=== PATIENT | female | born 1965 | race Caucasian/White ===

== ENCOUNTER 2021-07-19 10:30 | Inpatient (IN) | payer OTHER ==
[~2021-07-19 10:30] MED LIST: HEPARIN SODIUM,PORCINE 10,000 UNIT in SODIUM CHLORIDE 0.9% 1,000 ML IRRIGATION PRN; HEPARIN SODIUM,PORCINE 2,500 UNIT in SODIUM CHLORIDE 0.9% 250 ML IRRIGATION PRN
[2021-07-19] MEDS ORDERED: IV FLUID CONTINUATION 300 ML IV ONE (14:55)
[2021-07-19] MEDS ORDERED: fentaNYL (PF) 50 MCG/ML 2 ML AMP ONE (15:05)
[2021-07-19] MEDS ORDERED: ATORVASTATIN 80 MG TAB PO ONE (15:06)
[2021-07-19] MEDS ORDERED: LIDOCAINE 1% INJ 10MG/ML (20 ML MDV) ONE (15:06)
[2021-07-19] MEDS ORDERED: VERAPAMIL 2.5 MG/ML 2 ML AMP ONE (15:06)
[2021-07-19] MEDS ORDERED: ALPRAZolam 0.5 MG TAB PO PRN (15:07)
[2021-07-19] MEDS ORDERED: NITROGLYCERIN SL TABS 0.4 MG TAB SUBLINGUAL PRN ×2 (15:07→16:13)
--- NOTE | 2021-07-19 15:13 | P.CRDCN ---
History of Present Illness History of present illness: HISTORY OF PRESENTING ILLNESS This is a pleasant 56-year-old female past medical history significant for dyslipidemia on chronic nicotine dependence. Mother had cardiac disease and she is unsure what age. 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 She presented to [facility] at 1400 with symptoms of discomfort in the scapular region and the left anterior chest that radiates up into the left neck. EKG on arrival revealed sinus mechanism heart rate of [address] elevation noted in the inferior leads with T-wave inversions septally and in the high lateral leads. STEMI was activated and she was transferred here for cardiac catheterization. Chest x-ray performed at [facility] was negative for an acute cardiopulmonary process. Minimal labs available at the time of transfer, WBC 8, hemoglobin 14.8, platelets 290, creatinine 0.8. She was given 325 mg of aspirin and 4000 units of IV heparin along with Zofran. She is seen and examined quite anxious and tearful. She continues to have discomfort in the left side of her neck. She takes no daily cardiac medications. REVIEW OF SYSTEMS At the time of my exam: CONSTITUTIONAL: Denies fever or chills. CARDIOVASCULAR: Complains of neck and chest pain. Denies shortness of breath, orthopnea, PND or palpitations. RESPIRATORY: Denies cough. GASTROINTESTINAL: Denies abdominal pain, diarrhea, constipation, nausea or vomiting. MUSCULOSKELETAL: Denies myalgias. NEUROLOGIC: Denies numbness, tingling, headache or weakness. ENDOCRINE: Denies fatigue, weight change, polydipsia or polyurina. GENITOURINARY: Denies burning, hematuria or urgency with micturation. HEMATOLOGIC: Denies history of anemia or bleeding. PHYSICAL EXAMINATION CONSTITUTIONAL: No apparent distress. HEENT: Head is normocephalic. Pupils are equal, round. Sclerae anicteric. Mucous membranes of the mouth are moist. No JVD. No carotid bruit. CHEST EXAMINATION: Lungs are clear to auscultation. No chest wall tenderness is noted on palpation or with deep breathing. HEART EXAMINATION: Regular rate and rhythm. S1, S2 heard. No murmurs, gallops or rub. ABDOMEN: Soft, nontender. EXTREMITIES: 2+ peripheral pulses, no lower extremity edema and no calf tenderness. NEUROLOGIC EXAMINATION: Patient is awake, alert and oriented x3. ASSESSMENT Acute inferior wall myocardial infarction Dyslipidemia Chronic nicotine dependence PLAN Patient being transferred directly to the laborer yard for left heart cath. I have discussed the risks, benefits and alternative therapies for the above- mentioned procedure and for both sedation/analgesia as well as necessary blood product administration, if indicated, as they pertain to this patient. The patient has indicated understanding and acceptance of the risks and procedures discussed. Qu Patient received aspirin 324 mg, Zofran and heparin 4000 units IV prior to arrival. 80 mg of Lipitor is given in the laborer yard. Further recommendations to follow based upon clinical course. Nurse Practitioner note has been reviewed, I agree with a documented findings and plan of care. Patient was seen and examined.
[2021-07-19] MEDS ORDERED: fentaNYL (PF) 50 MCG/ML 2 ML AMP IV ONE (15:14)
[2021-07-19] MEDS ORDERED: LIDOCAINE 1% INJ 10MG/ML (20 ML MDV) SQ ONE (15:14)
[2021-07-19] MEDS ORDERED: HEPARIN SODIUM 1,000 UN/ML (10ML VL) ONE (15:18)
[2021-07-19] MEDS ORDERED: MIDAZOLAM 2 MG/2 ML VIAL IV ONE (15:18)
[2021-07-19] MEDS ORDERED: SODIUM CHLORIDE 0.9% 500 ML 500 ML IV ONE (15:20)
[2021-07-19] MEDS ORDERED: HEPARIN SODIUM 1,000 UN/ML (10ML VL) IV ONE (15:22)
[2021-07-19] MEDS ORDERED: TICAGRELOR 90 MG TAB ONE (15:22)
[2021-07-19] MEDS ORDERED: TICAGRELOR 90 MG TAB PO ONE (15:26)
[2021-07-19] MEDS ORDERED: SODIUM CHLORIDE 0.9% 1,000 ML IV ONE (15:36)
[2021-07-19] MEDS ORDERED: IOPAMIDOL-370 125ML BTL INJ ONE (15:39)
[2021-07-19] MEDS ORDERED: RX INFO: IV CONTRAST WAS GIVEN 1 EACH MISC MISCELLANE PRN (16:13)
[2021-07-19] MEDS ORDERED: MAG HYDROX/AL HYDROX/SIMETH 30 ML CUP PO PRN (16:13)
[2021-07-19] MEDS ORDERED: ZOLPIDEM 5 MG TAB PO PRN (16:13)
[2021-07-19] MEDS ORDERED: ATROPINE SULFATE 0.1 MG/ML 10ML SYRINGE IV PRN (16:13)
[2021-07-19] MEDS ORDERED: SODIUM CHLORIDE 0.9% 1,000 ML IV SCH (16:15)
[2021-07-19] MEDS ORDERED: IOPAMIDOL-370 100ML BTL INJ ONE (16:20)
--- NOTE | 2021-07-19 17:27 | CC ---
CARDIAC CATHETERIZATION REPORT DATE OF PROCEDURE: 07/19/2021 Mrs. Ludwig is a 56-year-old female with known history of chronic tobacco use who presented to [facility] with evidence of chest discomfort and evidence inferior myocardial infarction . She was transferred to [facility] to undergo cardiac catheterization. The procedure as well as its risks and complications were discussed with the patient, who was in full understanding and agreement. PROCEDURE DESCRIPTION: Patient was brought to laborer [place]. She received fentanyl and Benadryl and after achieving a moderate conscious sedated state she was prepped and draped in conventional fashion. Using Xylocaine anesthesia and Seldinger technique, a 6-Vincentian sheath was introduced in the right radial artery. Right coronary angiography was performed using 6-Vincentian FR4 guiding catheter. Subsequently and after obtaining images of the right coronary artery, angioplasty and stenting of the right coronary artery were performed. Following that, a 5-Vincentian 3.5 bend left Kailyn catheter was introduced into the system and images of the left coronary system were performed. The right Kailyn was used to cross the aortic valve and left ventricular end-diastolic pressure was calculated. At the end of the procedure, catheter and sheaths were removed. Hemostasis was obtained with deployment of a TR band. There was no immediate complication. The patient was returned to her room in stable condition. Of note, the patient received 3500 units of intravenous heparin as well as intra-arterial verapamil and an oral loading dose of Brilinta. Her ACT was followed. ANGIOGRAPHY: LEFT MAIN: This is a large-sized vessel bifurcating into left circumflex and left anterior descending coronary artery. Left main coronary artery has no evidence of high- grade stenosis. LEFT ANTERIOR DESCENDING ARTERY: This is a large-sized vessel reaching to the apex with a wrap around the apex segment giving rise to a small diagonal branch. The left anterior descending artery has no evidence of high-grade stenosis. LEFT CIRCUMFLEX: This is a nondominant, large-sized vessel giving rise to 2 obtuse marginal branches. The second obtuse marginal branch has 10% to 20% plaque. The rest of the vessel has no high-grade stenosis. RIGHT CORONARY ARTERY: This vessel is subtotally occluded in the mid segment with slow flow in the distal segment. There was diffuse disease from the proximal to the mid segment. COLLATERALS: There is collateral from the left system toward the RCA. HEMODYNAMICS: There is no gradient across the aortic valve. The left ventricular end- diastolic pressure was 16-20 mmHg. ANGIOPLASTY AND STENTING: Using the 6-Vincentian FR4 guiding catheter, a 0.014 balanced medium weight J-wire was advanced across the lesion, positioned distally, and then a 2.5 x 12 mm Trek balloon was advanced and two inflations at 8 atmospheres were done. Following that, the balloon was removed and a 2.5 x 18 mm Xience Johana stent was deployed, post-dilated at 16 atmospheres. Following that, the balloon was removed and a 2.5 x 12 mm Xience Johana stent was deployed distal to the first one and post-dilated at 16 atmospheres. Following that, the balloon was removed and a 2.75 x 33 mm Xience Johana stent was deployed proximally and post-dilated at 16 atmospheres. After the last inflation, the balloon was removed and a 3.0 x 15 mm NC Trek balloon was advanced and multiple inflations in the stented segment were done. After the last inflation, after appropriate wait, the balloon and the guidewire were withdrawn back into the guiding catheter. Images were obtained and repeated. Those images revealed stable successful stenting. Subsequently images of the left coronary system were performed. Following that, catheter and sheaths were removed and hemostasis was obtained with deployment of a TR band. RESULTS: 1. Successful stenting of the mid RCA with a long diffuse lesion with reduction of stenosis from 99% to 0%. 2. Mild disease in the obtuse marginal branch. RECOMMENDATIONS: In view of findings and anatomy, I have recommended continuing the aspirin and Brilinta without any interruption for 12 months. She will continue on aggressive coronary risk modifications in addition to beta galilea and JONNATHAN inhibitor, depending on her blood pressure. Those findings and recommendations were discussed with the patient and her family, who are in full understanding and agreement. The importance of smoking cessation was discussed with them. Duration of sedation was 46 minutes. MMODL / IJN: [id number] / TAMMI
--- NOTE | 2021-07-19 20:08 | LTR ---
July 19, 2021 To: Dr. Ramos Re: Lisa Ludwig (61) Dear Dr. Ramos, I had the pleasure of performing coronary angiography and coronary angioplasty and stenting on Mrs. Ludwig on July 19, and a full copy of the procedure note will be forwarded to you. In brief, she underwent successful stenting of her mid right coronary artery. I am hopeful that this procedure will stabilize her status. Thank you again for allowing me to participate in this patient's care. Please feel free to call with any questions. Sincerely, Delia Crockett M.D. BRITTNEE / DEREK: [id number] /
[2021-07-19] MEDS: SODIUM CHLORIDE 0.9% 1,000 ML in EMPTY BAG 1 BAG IV SCH (20:19)
[2021-07-19 21:14] LABS: Magnesium 2.1 mg/dL (1.6-2.3); Potassium 4.2 mmol/L (3.5-5.1)
[2021-07-19] MEDS: METOPROLOL TARTRATE 12.5 MG TAB PO SCH (21:26)
[2021-07-19] MEDS: ATORVASTATIN 80 MG TAB PO SCH (21:29)
[2021-07-19] MEDS: TICAGRELOR 90 MG TAB PO SCH (21:29)
[2021-07-19] MEDS: ALPRAZolam 0.25 MG TAB PO PRN (21:29)
[2021-07-20] MEDS: ALPRAZolam 0.25 MG TAB PO PRN ×2 (01:23→20:01)
[2021-07-20 05:34] LABS: African American GFR (CKD) >90 (>60 ml/min/1.73 sqM); Anion Gap 6 mmol/L; Blood Urea Nitrogen 10 mg/dL (7-17); Calcium 9.8 mg/dL (8.4-10.2); Carbon Dioxide 23 mmol/L (22-30); Chloride 110 mmol/L (98-107); Glucose 103 mg/dL (74-99); Non-African American GFR(CKD) >90 (>60 ml/min/1.73 sqM); Potassium 4.1 mmol/L (3.5-5.1); Sodium 139 mmol/L (137-145)
[2021-07-20] MEDS: SODIUM CHLORIDE 0.9% 1,000 ML in EMPTY BAG 1 BAG IV SCH (06:13)
[2021-07-20 09:12] LABS: Basophils % (A) 0 %; Eosinophils # (A) 0.1 k/uL (0-0.7); Eosinophils % (A) 1 %; HCT 44.2 % (34.0-46.0); Lymphocytes # (A) 1.4 k/uL (1.0-4.8); Lymphocytes % (A) 14 %; MCH 29.6 pg (25.0-35.0); MCHC 34.1 g/dL (31.0-37.0); MCV 86.9 fL (80.0-100.0); Mean Platelet Volume 7.2; Monocytes # (A) 0.5 k/uL (0-1.0); Monocytes % (A) 5 %; Neutrophils # (A) 7.8 k/uL (1.3-7.7); Neutrophils % (A) 79 %; Platelet Count 278 k/uL (150-450); RBC 5.08 m/uL (3.80-5.40); RDW 13.2 % (11.5-15.5)
[2021-07-20] MEDS: METOPROLOL TARTRATE 12.5 MG TAB PO SCH ×2 (09:18→20:03)
[2021-07-20] MEDS: LEVOTHYROXINE 112 MCG TAB PO SCH (09:23)
[2021-07-20] MEDS: ASPIRIN 81 MG PO SCH (09:23)
[2021-07-20] MEDS: TICAGRELOR 90 MG TAB PO SCH ×2 (09:23→19:52)
[2021-07-20] MEDS: SODIUM CHLORIDE 0.9% 1,000 ML IV SCH ×2 (09:23→22:06)
[2021-07-20] MEDS: LOSARTAN 25 MG TAB PO SCH (09:24)
[2021-07-20 10:05] LABS: Chol/HDL Ratio 5.12 Ratio; LDL Cholesterol,Calculated 145.9 mg/dL (0.0-131.0)
--- NOTE | 2021-07-20 11:08 | ECHOF ---
Referral Reason:mi MEASUREMENTS -------- HEIGHT: 157.5 cm WEIGHT: 76.7 kg BP: IVSd: 0.9 cm (0.6 - 1.1) LVIDd: 4.5 cm (3.9 - 5.3) LVPWd: 1.1 cm (0.6 - 1.1) IVSs: 1.7 cm LVIDs: 2.6 cm LVPWs: 1.8 cm LAESV Index (A-L): 29.13 ml/m Ao Diam: 2.9 cm (2.0 - 3.7) AV Cusp: 2.0 cm (1.5 - 2.6) LA Diam: 2.9 cm (2.7 - 3.8) MV EXCURSION: 19.740 mm (> 18.000) MV EF SLOPE: 103 mm/s (70 - 150) EPSS: 1.6 cm MV E David: 0.91 m/s MV DecT: 224 ms MV A David: 0.72 m/s MV E/A Ratio: 1.26 RAP: 5.00 mmHg RVSP: 29.59 mmHg FINDINGS -------- This was a technically good study. The left ventricular size is normal. Left ventricular wall thickness is normal. Overall left vent ricular systolic function is low-normal with, an EF between 50 - 55 %. The diastolic filling patter n is normal for the age of the patient 12.73. Basal inferior LV wall motion is hypokinetic. The right ventricle is normal in size. LA is midly dilated 29-33ml/m2. The right atrial size is normal. The aortic valve is trileaflet and appears structurally normal. The mitral valve is normal. Moderate mitral regurgitation is present. The tricuspid valve appears structurally normal. Mild tricuspid regurgitation present. Right vent ricular systolic pressure is normal at < 35 mmHg. There is no pulmonic regurgitation present. The aortic root size is normal. Normal inferior vena cava with normal inspiratory collapse consistent with estimated right atrial pre ssure of 5 mmHg. There is no pericardial effusion. CONCLUSIONS -------- 1. The left ventricular size is normal. 2. Left ventricular wall thickness is normal. 3. Overall left ventricular systolic function is low-normal with, an EF between 50 - 55 %. 4. The diastolic filling pattern is normal for the age of the patient 12.73 5. Basal inferior LV wall motion is hypokinetic. 6. Moderate mitral regurgitation is present. 7. Mild tricuspid regurgitation present. 8. There is no pericardial effusion. SUPER[employer]OR [employer]ING UP: Amena Montoya RDCS
[2021-07-20 13:11] VITALS: BMI 29.1
--- NOTE | 2021-07-20 13:17 | PN ---
PROGRESS NOTE HISTORY: This lady has been admitted to the hospital after transfer from [facility] with acute ST-elevation NH involving the inferior wall. She underwent stenting of RCA by Dr. Crockett. She is doing well. Echo today revealed ejection fraction of about 45-50 percent with the mid inferior and inferobasal hypokinesia. She is hemodynamically stable resting without any chest pain, shortness of breath or palpitation. PHYSICAL EXAM: Vitals are stable. No JVD or carotid bruit. S1-S2 heard normally. Lungs are clear. Abdomen is soft, nontender. Lower extremities reveal normal pulses. No edema. Central nervous system is normal. Right radial site is clean and dry with a good pulse. RECOMMENDATIONS: I am recommending that we will continue current medical regimen. Increase activity. Start her on a small dose of losartan. She is slightly bradycardic. We will hold Lopressor for heart rate of less than 60. We will increase activity. Check another CBC and troponin and move her to telemetry today. Gradual increase activity and hopefully discharge in the next 48 hours. I discussed my thoughts in detail with the patient and also spoke to her daughter, Rossi, by phone. MMODL / IJN: [id number] /
[2021-07-20] MEDS: ATORVASTATIN 80 MG TAB PO SCH (19:52)
[2021-07-21] MEDS: LEVOTHYROXINE 112 MCG TAB PO SCH (06:32)
--- NOTE | 2021-07-21 08:50 | P.HPIM ---
History of Present Illness Patient is pleasant 56-year-old female came in with complaints of chest pain and found to have ST elevation microinfarction patient underwent cardiac ablation and stenting to RCA patient has some sinus bradycardia patient is closely being monitored because of highly elevated troponin. Patient had a repeat echocardiogram which showed normal ejection fraction patient is presently on dual antiplatelet therapy, REVIEW OF SYSTEMS: CONSTITUTIONAL: No fever, no malaise, no fatigue. HEENT: No recent visual problems or hearing problems. Denied any sore throat. CARDIOVASCULAR: No chest pain, orthopnea, PND, no palpitations, no syncope. PULMONARY: No shortness of breath, no cough, no hemoptysis. GASTROINTESTINAL: No diarrhea, no nausea, no vomiting, no abdominal pain. NEUROLOGICAL: No headaches, no weakness, no numbness. HEMATOLOGICAL: Denies any bleeding or petechiae. GENITOURINARY: Denies any burning micturition, frequency, or urgency. MUSCULOSKELETAL/RHEUMATOLOGICAL: Denies any joint pain, swelling, or any muscle pain. ENDOCRINE: Denies any polyuria or polydipsia. The rest of the 14-point review of systems is negative. PHYSICAL EXAMINATION: GENERAL: The patient is alert and oriented x3, not in any acute distress. Well developed, well nourished. HEENT: Pupils are round and equally reacting to light. EOMI. No scleral icterus. No conjunctival pallor. Normocephalic, atraumatic. No pharyngeal erythema. No thyromegaly. CARDIOVASCULAR: S1 and S2 present. No murmurs, rubs, or gallops. PULMONARY: Chest is clear to auscultation, no wheezing or crackles. ABDOMEN: Soft, nontender, nondistended, normoactive bowel sounds. No palpable organomegaly. MUSCULOSKELETAL: No joint swelling or deformity. EXTREMITIES: No cyanosis, clubbing, or pedal edema. NEUROLOGICAL: Gross neurological examination did not reveal any focal deficits. SKIN: No rashes. Assessment and plan 1 acute Inferior wall myocardial infarction: Patient is status post cardiac catheterization and stenting RCA normal ejection fraction patient will be continued on dual antiplatelet therapy, Lipitor, low-dose beta galilea and JONNATHAN inhibitor -Hyperlipidemia next and-hypothyroidism -Nicotine dependence: Counseling was provided -Mild sinus bradycardia which is expected to improve and this is secondary to RCA myocardial infarction -Possibility of discharge tomorrow Past Medical History History of Any Multi-Drug Resistant Organisms: None Reported Smoking Status: Current every day smoker Medications and Allergies Home Medications Medication Instructions Recorded Confirmed Type Levothyroxine Sodium 112 mcg PO AC-BRKFST 07/19/21 07/19/21 History Allergies Allergy/AdvReac Type Severity Reaction Status Date / Time Sulfa (Sulfonamide Allergy Rash/Hives Verified 07/19/21 17:48 Antibiotics) Physical Exam Vitals: Vital Signs Temp Pulse Pulse Pulse Resp BP BP 07/21/21 04:00 55 L 16 132/60 07/21/21 00:49 46 L 16 07/20/21 23:46 97.8 F 46 L 16 139/70 07/20/21 20:00 97.7 F 57 L 49 L 16 160/70 07/20/21 18:00 98.6 F 49 L 16 127/77 07/20/21 16:00 98.4 F 47 L 23 139/77 07/20/21 15:00 49 L 15 07/20/21 14:00 46 L 18 07/20/21 13:00 44 L 12 126/77 07/20/21 12:00 97.8 F 53 L 18 123/71 07/20/21 11:00 48 L 20 122/66 07/20/21 10:00 46 L 16 158/79 07/20/21 09:00 57 L 23 113/64 Pulse Ox 07/21/21 04:00 98 07/21/21 00:49 07/20/21 23:46 98 07/20/21 20:00 99 07/20/21 18:00 96 07/20/21 16:00 99 07/20/21 15:00 07/20/21 14:00 95 07/20/21 13:00 97 07/20/21 12:00 96 07/20/21 11:00 97 07/20/21 10:00 95 07/20/21 09:00 95 Intake and Output 07/20/21 07/21/21 07/21/21 22:59 06:59 14:59 Intake Total 75 Balance 75 Intake: Intake, IV Titration 75 Amount Sodium Chloride 0.9% 1, 75 000 ml @ 75 mls/hr IV . [id number] [facility] Rx#:[id number] Other: Voiding Method Toilet Toilet # Voids 1 3 Weight 69.9 kg Results CBC & Chem 7: 07/20/21 08:45 07/20/21 04:25 Labs: Abnormal Lab Results - Last 24 Hours (Table) 07/20/21 07/20/21 07/20/21 Range/Units 04:25 08:45 08:45 Neutrophils # 7.8 H (1.3-7.7) k/uL Troponin I 18.400 H* (0.000-0.034) ng/mL Triglycerides 196.00 H (0.00-149.00) mg/dL Cholesterol 230.00 H (0.00-200.00) mg/dL LDL Cholesterol, Calc 145.9 H (0.0-131.0) mg/dL
[2021-07-21] MEDS: ALPRAZolam 0.25 MG TAB PO PRN ×2 (09:44→21:17)
[2021-07-21] MEDS: ASPIRIN 81 MG PO SCH (09:44)
[2021-07-21] MEDS: LOSARTAN 25 MG TAB PO SCH (09:45)
[2021-07-21] MEDS: TICAGRELOR 90 MG TAB PO SCH ×2 (09:46→20:47)
[2021-07-21 10:16] LABS: African American GFR (CKD) >90 (>60 ml/min/1.73 sqM); Anion Gap 7 mmol/L; Blood Urea Nitrogen 10 mg/dL (7-17); Calcium 9.8 mg/dL (8.4-10.2); Carbon Dioxide 27 mmol/L (22-30); Chloride 107 mmol/L (98-107); Glucose 128 mg/dL (74-99); Non-African American GFR(CKD) >90 (>60 ml/min/1.73 sqM); Potassium 4.1 mmol/L (3.5-5.1); Sodium 141 mmol/L (137-145)
[2021-07-21] MEDS: METOPROLOL TARTRATE 12.5 MG TAB PO SCH (10:55)
--- NOTE | 2021-07-21 11:16 | PN ---
PROGRESS NOTE Mrs. Ludwig is in sinus rhythm, sinus bradycardia, tolerating well, ambulating without symptoms. Her ejection fraction is in the 45% to 50% range with inferobasal hypokinesia. Plan is to increase activity and discharge tomorrow. Follow up with Dr. Crockett in one week and her PCP. Vitals are stable. No JVD. S1, S2 heard normally. Lungs are clear. Abdomen is soft, non-tender. Lower extremities reveal normal pulses. No edema. Central nervous system is normal. Patient can be discharged tomorrow. Same medical regimen. Increased activity. MMODL / IJN: [id number] /
[2021-07-21] MEDS: SODIUM CHLORIDE 0.9% 1,000 ML IV SCH (13:40)
[2021-07-21] MEDS: ATORVASTATIN 80 MG TAB PO SCH (20:47)
[2021-07-21 23:42] VITALS: TEMP 98
[2021-07-22] MEDS: ALPRAZolam 0.25 MG TAB PO PRN (05:57)
[2021-07-22] MEDS: LEVOTHYROXINE 112 MCG TAB PO SCH (05:57)
[2021-07-22] MEDS: METOPROLOL TARTRATE 12.5 MG TAB PO SCH (09:25)
[2021-07-22] MEDS: ASPIRIN 81 MG PO SCH (09:26)
[2021-07-22] MEDS: TICAGRELOR 90 MG TAB PO SCH (09:27)
[2021-07-22] MEDS: LOSARTAN 25 MG TAB PO SCH (09:27)
--- NOTE | 2021-07-22 10:16 | P.DS ---
Providers Date of admission: 07/19/21 16:15 Attending physician: Fei Sanchez Consults: 07/19/21 15:09 Consult Physician Stat Consulting Provider: Delia Crockett Consult Reason/Comments: STEMI Do you want consulting provider notified?: Already Contacted Placement Type Exists?: Yes 07/19/21 16:13 Consult Physician Routine Consulting Provider: [facility] Consult Reason/Comments: Post Interventional patient Do you want consulting provider notified?: Already Contacted Primary care physician: Stated None Hospital Course: Patient is pleasant 56-year-old female came in with complaints of chest pain and found to have ST elevation microinfarction patient underwent cardiac ablation and stenting to RCA patient has some sinus bradycardia patient is closely being monitored because of highly elevated troponin. Patient had a repeat echocardiogram which showed normal ejection fraction patient is presently on dual antiplatelet therapy, 07/22/2021 Patient is clinically doing well will be discharged today patient received a stenting to RCA. Patient remains mildly bradycardic because of which patient is not being discharged on beta galilea at this time. PHYSICAL EXAMINATION: GENERAL: The patient is alert and oriented x3, not in any acute distress. Well developed, well nourished. HEENT: Pupils are round and equally reacting to light. EOMI. No scleral icterus. No conjunctival pallor. Normocephalic, atraumatic. No pharyngeal erythema. No thyromegaly. CARDIOVASCULAR: S1 and S2 present. No murmurs, rubs, or gallops. PULMONARY: Chest is clear to auscultation, no wheezing or crackles. ABDOMEN: Soft, nontender, nondistended, normoactive bowel sounds. No palpable organomegaly. MUSCULOSKELETAL: No joint swelling or deformity. EXTREMITIES: No cyanosis, clubbing, or pedal edema. NEUROLOGICAL: Gross neurological examination did not reveal any focal deficits. SKIN: No rashes. Assessment and plan 1 acute Inferior wall myocardial infarction: Patient is status post cardiac catheterization and stenting RCA normal ejection fraction on post-FL echocardiogram -Hyperlipidemia -hypothyroidism -Nicotine dependence: Counseling was provided -Mild sinus bradycardia which is expected to improve and this is secondary to RCA myocardial infarction Plan - Discharge Summary Discharge Rx Participant: No New Discharge Prescriptions: New Aspirin 81 mg PO DAILY #30 tab Losartan [Cozaar] 12.5 mg PO DAILY #30 tab Atorvastatin [Lipitor] 80 mg PO HS #30 tab Ticagrelor [Brilinta] 90 mg PO BID #30 tab Nitroglycerin Sl Tabs [Nitrostat] 0.4 mg SUBLINGUAL Q5M PRN #30 tab PRN Reason: Chest Pain Continue Levothyroxine Sodium 112 mcg PO [facility] Discharge Medication List Levothyroxine Sodium 112 mcg PO -[facility] 07/19/21 [History] Aspirin 81 mg PO DAILY #30 tab 07/22/21 [Rx] Atorvastatin [Lipitor] 80 mg PO HS #30 tab 07/22/21 [Rx] Losartan [Cozaar] 12.5 mg PO DAILY #30 tab 07/22/21 [Rx] Nitroglycerin Sl Tabs [Nitrostat] 0.4 mg SUBLINGUAL Q5M PRN #30 tab 07/22/21 [Rx] Ticagrelor [Brilinta] 90 mg PO BID #30 tab 07/22/21 [Rx] Follow up Appointment(s)/Referral(s): Ifrah Umana MD [STAFF PHYSICIAN] - 1 Week (Call office to set up follow-up appointment ) Daniel Cantor MD [REFERRING] - 1 Week (Call office to set up follow up appointment ) Patient Instructions/Handouts: Heart Attack (DC), Heart Catheterization (DC) Activity/Diet/Wound Care/Special Instructions: Contact CM at discharge for indigent funds if needed Discharge Disposition: HOME SELF-CARE
[2021-07-22 11:39] VITALS: BP 110/77; PULSE 50; RESP 18
--- NOTE | 2021-07-22 12:03 | PN ---
PROGRESS NOTE Mrs. Ludwig presented with acute inferior ID to [facility], was transferred here and underwent evaluations and STEMI intervention by Dr. Crockett with stents of RCA. She is doing well post procedure. Right radial site is clean and dry with a good pulse. Vitals are stable, however, she has been bradycardic. Therefore, we will not give her beta blockers. Her average heart rate has been less than 60 throughout. We will continue all her other medications including dual antiplatelet therapy. I gave her prescriptions, gave her instructions regarding medications and also activity upon discharge. She will see Dr. Crockett in one week. She will be discharged today. Vitals are stable. No JVD. S1, S2 heard normally. Clear lungs. Abdomen, lower extremity exam and central nervous system are normal. I gave her specific instructions regarding activity and she will be seeing Dr. Crockett in one week. MMODL / IJN: [id number] /
== END 2021-07-22 10:44 | disposition home or self-care (01) | DRG 247 ==
LOC: 2SICU 16:15 → 3SCARD 07-20 17:53
PROVIDERS: ADMIT Hospitalist; ATTEND Hospitalist
PROC: B2111ZZ Fluoroscopy of Multiple Coronary Arteries using Low Osmolar Contrast (ICD-10-PCS; 2021-07-19)
PROC: 027036Z Dilation of Coronary Artery, One Artery with Three Drug-eluting Intraluminal Devices, Percutaneous Approach (ICD-10-PCS; principal; 2021-07-19 15:05)
PROC: 4A023N7 Measurement of Cardiac Sampling and Pressure, Left Heart, Percutaneous Approach (ICD-10-PCS; 2021-07-19 15:05)
DX: I21.19 ST elevation (STEMI) myocardial infarction involving other coronary artery of inferior wall (principal); I25.10 Atherosclerotic heart disease of native coronary artery without angina pectoris; E03.9 Hypothyroidism, unspecified; R00.1 Bradycardia, unspecified; Z20.822 Contact with and (suspected) exposure to COVID-19; E78.5 Hyperlipidemia, unspecified; F17.210 Nicotine dependence, cigarettes, uncomplicated; Z79.890 Hormone replacement therapy; Z88.2 Allergy status to sulfonamides; Z71.6 Tobacco abuse counseling
CPT/HCPCS: 80048; 80061; 83735; 84132; 84484; 85025; 93306; 93458

== ENCOUNTER → 2021-12-11 | Outpatient (CLI) | payer BC ==
[2021-12-11 15:22] LABS: ALT 99 U/L (8-44); AST 49 U/L (13-35); African American GFR (CKD) 114.4 (60.0-200.0); Albumin 4.3 g/dL (3.8-4.9); Albumin/Globulin Ratio 2.02 (1.60-3.17); Alkaline Phosphatase 121 U/L (41-126); BUN/Creat Ratio 23.54 Ratio (12.00-20.00); Blood Urea Nitrogen 14.9 mg/dL (9.0-27.0); Calcium 9.5 mg/dL (8.7-10.3); Carbon Dioxide 22.7 mmol/L (20.0-27.5); Chloride 107 mmol/L (96-109); Chol/HDL Ratio 2.46 Ratio; Globulin 2.1 g/dL (1.6-3.3); Glucose 107 mg/dL (70-110); LDL Cholesterol,Calculated 68.1 mg/dL (0.0-131.0); Non-African American GFR(CKD) 98.7 (60.0-200.0); Potassium 4.9 mmol/L (3.5-5.5); Sodium 143 mmol/L (135-145); Total Protein 6.4 g/dL (6.2-8.2)
== END | disposition home or self-care (01) ==
LOC: LABWHC1 08:55
PROVIDERS: ATTEND Internal Medicine Interventional Cardiology
DX: E78.2 Mixed hyperlipidemia (principal)
CPT/HCPCS: 36415; 80053; 80061

== ENCOUNTER → 2022-08-27 | Outpatient (CLI) | payer BC ==
[2022-08-27 18:58] LABS: ALT 19 U/L (8-44); AST 16 U/L (13-35); African American GFR (CKD) 109.9 (60.0-200.0); Albumin 4.5 g/dL (3.8-4.9); Albumin/Globulin Ratio 2.14 (1.60-3.17); Alkaline Phosphatase 110 U/L (41-126); BUN/Creat Ratio 21.14 Ratio (12.00-20.00); Blood Urea Nitrogen 14.8 mg/dL (9.0-27.0); Carbon Dioxide 26.1 mmol/L (20.0-27.5); Chloride 105 mmol/L (96-109); Globulin 2.1 g/dL (1.6-3.3); Glucose 110 mg/dL (70-110); Non-African American GFR(CKD) 94.8 (60.0-200.0); Potassium 4.8 mmol/L (3.5-5.5); Sodium 141 mmol/L (135-145); Total Protein 6.6 g/dL (6.2-8.2)
[2022-08-27 18:59] LABS: Chol/HDL Ratio 2.81 Ratio
== END | disposition home or self-care (01) ==
LOC: LABWHC1 11:09
PROVIDERS: ATTEND Internal Medicine Interventional Cardiology
DX: E78.2 Mixed hyperlipidemia (principal)
CPT/HCPCS: 36415; 80053; 80061